=== PATIENT | male | born 1955 | race African-American/Black ===

== ENCOUNTER 2019-08-19 10:02 | Outpatient (CLI) | payer MEDICARE ==
--- NOTE | 2019-08-19 10:39 | RAD ---
Exam: XR Femur Rt 2 View STANDARD HISTORY: Persistent right hip pain. COMPARISON: Views of the right hip on 06/17/2019 FINDINGS: Previously noted lytic lesion with defined sclerotic margin and narrow zone of transition in the inte rtrochanteric region right hip is again seen and stable and does demonstrate a nonaggressive appearance. In addition, there is stable cortical thickening along the medial aspect subtrochanteric region proximal right femoral diaphysis with mild sclerosis in this region. This also has an overall nonaggressive appearance as well. Osteoarthritis right hip is again seen. No fracture or dislocation is identified. There is a coarse c alcification just lateral to the right distal femoral metaphysis which could potentially represent a intra-articular loose body or heterotopic ossification. Osteoarthritis right knee is present. No fracture or dislocation is seen. IMPRESSION: Stable overall nonaggressive findings involving the proximal right femur. However, given the cortical thickening and sclerosis proximal right femur in combination with reported history of right hip pain, a bone scan is suggested for further evaluation.
--- NOTE | 2019-08-19 12:12 | RAD ---
RIGHT HIP 2 VIEWS: Date: 08/19/2019 HISTORY: Persistent right hip pain. COMPARISON: 06/17/2019 study. FINDINGS: There are some moderate arthritic changes of the hip joint. There is mild joint space narrowing. Ther e is spur formation along the acetabulum and femoral head/neck junction. The intertrochanteric lesion of the right hip and cortical thickening seen along the proximal femoral shaft all appear stable as compared to the previous study. IMPRESSION: Stable overall exam. POS: [id number]
== END 2019-08-19 10:03 | disposition home or self-care (01) ==
LOC: BICRAD 10:02
PROVIDERS: ATTEND Family Medicine
DX: M25.551 Pain in right hip (principal)

== ENCOUNTER 2020-07-20 12:23 | Outpatient (CLI) | payer MEDICARE | END 2020-07-20 12:24 | disposition home or self-care (01) | LOC: BICULT 12:23 | PROVIDERS: ATTEND Family Medicine | DX: R80.9 Proteinuria, unspecified (principal); N28.1 Cyst of kidney, acquired | CPT/HCPCS: 76770 ==